=== PATIENT | male | born 1970 | race Caucasian/White ===

== ENCOUNTER 2016-08-30 19:48 | Emergency (ER) | payer BC, OTHER ==
[~2016-08-30] VITALS: Ht 177.8 cm; Wt 81.6 kg
[2016-08-30] MEDS ORDERED: ASPIRIN 81 MG CHEW TABLET PO ONE (20:00)
[2016-08-30] MEDS ORDERED: MULT1TAB10 PO (20:02)
[2016-08-30] MEDS ORDERED: AZEL0.055 (20:02)
[2016-08-30 20:28] LABS: BASO % 0.6 % (0.0-1.0); EOS # 0.2 K/mm3 (0.0-0.50); EOS % 2.6 % (0.0-3.0); LARGE UNSTAINED CELL # 0.1 K/mm3 (0.0-0.4); LARGE UNSTAINED CELL % 1.9 % (0.0-4.0); LYMPH # 2.3 K/mm3 (1.5-4.5); LYMPH % 38.6 % (24.0-44.0); MEAN CORPUSCULAR HEMOGLOBIN 29.7 pg (27.0-33.0); MEAN CORPUSCULAR HGB CONC 34.1 g/dl (32.0-36.5); MEAN CORPUSCULAR VOLUME 87.4 fl (80.0-96.0); MONO # 0.4 K/mm3 (0.0-0.8); MONO % 6.3 % (0.0-5.0); NEUTROPHILS % 50.1 % (36.0-66.0); PLATELET COUNT, AUTOMATED 219 k/mm3 (150-450)
[2016-08-30 20:55] LABS: ANION GAP 7 MEQ/L (8-16); BLOOD UREA NITROGEN 19 MG/DL (7-18); CALCIUM LEVEL 8.7 MG/DL (8.5-10.1); CARBON DIOXIDE LEVEL 30 MEQ/L (21-32); CHLORIDE LEVEL 106 MEQ/L (98-107); CREATININE FOR GFR 1.17 MG/DL (0.70-1.30); GLOMERULAR FILTRATION RATE > 60.0 (>60); GLUCOSE, FASTING 95 MG/DL (70-105); POTASSIUM SERUM 4.2 MEQ/L (3.5-5.1); SODIUM LEVEL 143 MEQ/L (136-145)
[2016-08-30] MEDS ORDERED: ISOVUE-370 76% 100ML VIAL (Q9967) As Ordered ONE (21:31)
--- NOTE | 2016-08-30 22:30 | REPUSA ---
History: Chest pain. Comparison: No prior CTA of the chest available Technique: A CT-pulmonary angiogram was performed. A dose of intravenous contrast was administered. A xial images were displayed, as were sagittal and coronal reconstructions. A 3-D model was also render ed. Findings: No CT evidence of pulmonary embolism is identified. There is no evidence of thoracic aortic aneurysm or dissection. No air space consolidation is identified in the lungs. There is no evidence of pulmonary edema. No pa thologically enlarged hilar or mediastinal lymph nodes are identified. No significant pleural or jay cardial fluid collection is seen. There is no evidence of pneumothorax. Mild degenerative changes are noted in the spine. The included portion of the upper abdomen demonstra te bilateral nonobstructing renal calculi. Impression: No evidence of pulmonary embolism is identified. Bilateral nonobstructing renal calculi.
[2016-08-30] MEDS ORDERED: GI COCKTAIL 50ML BTL(HYOSCYAMINE/MAALOX/LIDOCAINE VISCOUS)(1:3:1) PO ONE (22:45)
--- NOTE | 2016-08-31 00:25 | REP ---
Clinical: Chest pain . Comparison: 06/16/2011 . Findings: The mediastinum and cardiac silhouette are stable and within normal limits for portable technique. The lung villarreal are clear without acute consolidation, effusion, or pneumothorax. Skeletal structures are intact. Impression: Normal portable chest x-ray Signed by Griffin Bhagat MD 08/31/2016 12:17 A
[2016-08-31] MEDS ORDERED: ASPI81TA85 PO (00:56)
[2016-08-31 01:01] VITALS: BP 145/86
--- NOTE | 2016-08-31 08:23 | ECGEPIP ---
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
--- NOTE | 2016-08-31 08:24 | ECGEPIP ---
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
--- NOTE | 2016-08-31 08:27 | ECGEPIP ---
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
== END 2016-08-31 01:08 | disposition home or self-care (01) ==
LOC: M ED 20:54
DX: R07.9 Chest pain, unspecified (principal); I45.4 Nonspecific intraventricular block; N20.0 Calculus of kidney; G43.909 Migraine, unspecified, not intractable, without status migrainosus; Z80.3 Family history of malignant neoplasm of breast; Z82.49 Family history of ischemic heart disease and other diseases of the circulatory system; Z79.82 Long term (current) use of aspirin; Z79.899 Other long term (current) drug therapy
CPT/HCPCS: 71010; 71275; 80048; 82550; 82553; 83880; 85025; 93005; 93041; 94760; 99285; Q9967

== ENCOUNTER 2021-01-18 13:52 | Emergency (ER) | payer BC, OTHER ==
[~2021-01-18] VITALS: Ht 177.8 cm; Wt 78.3 kg
[~2021-01-18 13:52] MED LIST: ASPI81TA86 PO; AZEL0.055; MULT1TAB10 PO
[2021-01-18] MEDS ORDERED: PANTOPRAZOLE 40MG VIAL (C9113 PER 1) IV ONE (14:35)
[2021-01-18] MEDS ORDERED: ONDANSETRON 4MG/2ML VIAL IV ONE (14:35)
[2021-01-18] MEDS ORDERED: NS 1,000 ML IV ONE (14:35)
[2021-01-18 16:52] LABS: BASO % 0.2 % (0.0-1.0); EOS % 0.2 % (0.0-3.0); HEMATOCRIT 46.5 % (42.0-52.0); LYMPH # 0.9 10^3/uL (1.5-5.0); LYMPH % 20.1 % (24.0-44.0); MEAN CORPUSCULAR HEMOGLOBIN 29.9 pg (27.0-33.0); MEAN CORPUSCULAR HGB CONC 34.4 g/dl (32.0-36.5); MEAN CORPUSCULAR VOLUME 86.8 fl (80.0-96.0); MONO # 0.4 10^3/uL (0.0-0.8); NEUTROPHILS # 3.2 10^3/uL (1.5-8.5); NEUTROPHILS % 71.3 % (36.0-66.0); PLATELET COUNT, AUTOMATED 213 10^3/uL (150-450); RED BLOOD COUNT 5.36 10^6/uL (4.30-6.10); WHITE BLOOD COUNT 4.5 10^3/uL (4.0-10.0)
[2021-01-18 17:03] LABS: ALBUMIN 4.1 GM/DL (3.2-5.2); ALT/SGPT 32 U/L (12-78); BILIRUBIN,DIRECT 0.2 MG/DL (0.0-0.2); BILIRUBIN,TOTAL 0.7 MG/DL (0.2-1.0); BLOOD UREA NITROGEN 9 MG/DL (7-18); CALCIUM LEVEL 9.1 MG/DL (8.5-10.1); CARBON DIOXIDE LEVEL 28 MEQ/L (21-32); CHLORIDE LEVEL 106 MEQ/L (98-107); CREATININE FOR GFR 0.77 MG/DL (0.70-1.30); GLOMERULAR FILTRATION RATE > 60.0 (>56); GLUCOSE, FASTING 92 MG/DL (70-100); LIPASE 158 U/L (73-393); POTASSIUM SERUM 3.9 MEQ/L (3.5-5.1); SODIUM LEVEL 141 MEQ/L (136-145); TOTAL PROTEIN 7.3 GM/DL (6.4-8.2)
[2021-01-18] MEDS ORDERED: ZOFR4TAB16 PO (17:20)
[2021-01-18 18:30] VITALS: BP 128/72
== END 2021-01-18 18:22 | disposition home or self-care (01) ==
LOC: M ED 13:52
DX: R31.9 Hematuria, unspecified (principal); B34.9 Viral infection, unspecified; R11.0 Nausea
CPT/HCPCS: 80048; 80076; 81001; 83690; 85025; 96361; 96374; 96375; 99284; C9113; J2405

== ENCOUNTER → 2021-06-19 | Outpatient (CLI) | payer OTHER ==
[~2021-06-19] MED LIST changes: +ZOFR4TAB16 PO
--- NOTE | 2021-06-19 09:29 | REP ---
INDICATION: SPONDYLOSIS W/O MYELOPATHY OR RADICULOPATHY, CERVI. COMPARISON: None. TECHNIQUE: AP, lateral, swimmer's views of the cervical spine FINDINGS: Evidence for prior anterior fixation at C5-C7. Moderate degenerative changes include endplate sclerosis with marginal spurring and minimal disc space narrowing most pronounced at C7-T1 and C4-5. 1 mm of chronic anterolisthesis at C3-4 is suggested. No evidence for acute fracture/compression injury or significant subluxation. IMPRESSION: Degenerative changes as noted above. <Electronically signed by Griffin Bhagat > 06/19/21 [id number]
== END ==
LOC: M RAD 08:58
PROVIDERS: ATTEND Neurological Surgery
DX: M47.812 Spondylosis without myelopathy or radiculopathy, cervical region (principal)

== ENCOUNTER 2024-03-31 17:09 | Day surgery (SDC) | payer BC, OTHER ==
[~2024-03-31] VITALS: Ht 175.3 cm; Wt 77.3 kg
[~2024-03-31 17:09] MED LIST changes: -AZEL0.055; +AZEL1SPR4
[2024-03-31] MEDS: NS 1,000 ML IV ONE (17:25)
[2024-03-31] MEDS ORDERED: TRAZ1TAB11 (17:29)
[2024-03-31] MEDS ORDERED: SUMA6PEN3 (17:29)
[2024-03-31] MEDS ORDERED: NORT25CA2 (17:29)
[2024-03-31] MEDS: MORPHINE 4 MG/ML 1ML VIAL IV PRN (17:38)
[2024-03-31] MEDS: ONDANSETRON 4MG 2ML VIAL IV ONE (17:38)
[2024-03-31] MEDS ORDERED: ISOVUE-370 76% 100ML VIAL As Ordered ONE (17:42)
[2024-03-31 17:50] LABS: VENOUS BASE EXCESS 0.9 (-2.0-2.0); VENOUS HCO3 23.1 MMOL/L (23.0-27.0); VENOUS O2 SATURATION 58.3 % (60.0-80.0); VENOUS PARTIAL PRESSURE CO2 30.1 mmHg (38.0-50.0); VENOUS PARTIAL PRESSURE O2 26.2 mmHg (30.0-50.0); VENOUS PH 7.502 UNITS (7.330-7.430); VENOUS STANDARD HCO3 24.3 MMOL/L
[2024-03-31 17:54] LABS: BASO # 0.1 10^3/uL (0.0-0.2); BASO % 0.4 % (0.0-1.0); EOS % 0.1 % (0.0-3.0); HEMATOCRIT 39.8 % (42.0-52.0); HEMOGLOBIN 13.9 g/dl (13.5-17.5); LYMPH # 1.3 10^3/uL (1.5-5.0); LYMPH % 9.6 % (24.0-44.0); MEAN CORPUSCULAR HEMOGLOBIN 30.6 pg (27.0-33.0); MEAN CORPUSCULAR HGB CONC 34.9 g/dl (32.0-36.5); MEAN CORPUSCULAR VOLUME 87.7 fl (80.0-96.0); MONO # 0.8 10^3/uL (0.0-0.8); MONO % 5.5 % (2.0-8.0); NEUTROPHILS # 11.4 10^3/uL (1.5-8.5); PLATELET COUNT, AUTOMATED 287 10^3/uL (150-450); RED BLOOD COUNT 4.54 10^6/uL (4.30-6.10); WHITE BLOOD COUNT 13.5 10^3/uL (4.0-10.0)
[2024-03-31 18:06] LABS: INR 1.03; PARTIAL THROMBOPLASTIN TIME 25.3 SECONDS (24.8-34.2); PROTHROMBIN TIME 13.2 SECONDS (12.5-14.5)
[2024-03-31 18:18] LABS: LIPASE 38 U/L (12-53)
[2024-03-31 18:20] LABS: AMYLASE 65 U/L (30-118); CPK CREATINE PHOSPHOKINASE 452 U/L (46-171)
[2024-03-31 18:24] LABS: ALKALINE PHOSPHATASE 121 U/L (46-116); ALT/SGPT 31 U/L (7.0-40); AST/SGOT 30 U/L (<34); BILIRUBIN,DIRECT 0.2 MG/DL (<0.4); BILIRUBIN,TOTAL 0.7 MG/DL (0.3-1.2); BLOOD UREA NITROGEN 9 MG/DL (9-23); CALCIUM LEVEL 9.6 MG/DL (8.5-10.1); CARBON DIOXIDE LEVEL 24 MMOL/L (20-31); CHLORIDE LEVEL 105 MMOL/L (98-107); CK-MB VALUE MASS 3.4 NG/ML (<3.6); CREATININE FOR GFR 1.12 MG/DL (0.70-1.30); GLOMERULAR FILTRATION RATE > 60.0 (>56); GLUCOSE, FASTING 138 MG/DL (60-100); MB/CK RELATIVE INDEX 0.75 (< OR =4); SODIUM LEVEL 137 MMOL/L (136-145); TOTAL PROTEIN 6.6 G/DL (5.7-8.2)
[2024-03-31] MEDS: ceFAZolin 2 GM/D5W 50 ML IV BAG As Ordered ONE (19:15)
[2024-03-31] MEDS: TRANEXAMIC ACID 100 MG/ML 10ML VIAL As Ordered ONE (19:20)
[2024-03-31 19:30] LABS: CK-MB VALUE MASS 2.6 NG/ML (<3.6); MB/CK RELATIVE INDEX 0.66 (< OR =4)
[2024-03-31] MEDS ORDERED: MIDAZOLAM INJ 2MG/2ML VIAL As Ordered ONE (19:32)
[2024-03-31] MEDS ORDERED: KETOROLAC 60MG 2ML VIAL As Ordered ONE (19:32)
[2024-03-31] MEDS ORDERED: ROCURONIUM BROMIDE 50MG/5ML VIAL As Ordered ONE (19:32)
[2024-03-31] MEDS ORDERED: propofoL 200 MG/20 ML VIAL As Ordered ONE (19:32)
[2024-03-31] MEDS ORDERED: ONDANSETRON 4MG 2ML VIAL As Ordered ONE (19:32)
[2024-03-31] MEDS ORDERED: SUGAMMADEX SODIUM 500 MG/5 ML VIAL (BRIDION) As Ordered ONE (19:32)
[2024-03-31] MEDS ORDERED: dexmedeTOMIDine (4MCG/ML)200MCG/50ML BTL (PRECEDEX) As Ordered ONE (19:32)
[2024-03-31] MEDS ORDERED: LIDOCAINE 2% 100MG/5ML SDV (FOR ANES.) As Ordered ONE (19:32)
[2024-03-31] MEDS ORDERED: ACETAMINOPHEN 1000MG 100ML IV BAG As Ordered ONE (19:32)
[2024-03-31] MEDS ORDERED: METOCLOPRAMIDE INJ 10MG/2ML VIAL As Ordered ONE (19:32)
[2024-03-31] MEDS ORDERED: fentaNYL 100 MCG/2 ML INJECTION As Ordered ONE (19:32)
[2024-03-31] MEDS ORDERED: ePHEDrine SULFATE 25 MG/5 ML(5MG/ML) SYRINGE As Ordered ONE (19:44)
[2024-03-31] MEDS ORDERED: PHENYLephrine 500MCG 5ML (100MCG/ML) SYRINGE As Ordered ONE (19:44)
[2024-03-31] MEDS: EPINEPHrine INJ 1 MG/ML 1ML AMP As Ordered ONE (19:47)
[2024-03-31] MEDS ORDERED: HYDROMORPHONE HCL 0.5 MG/ 0.5 ML SYRINGE IV PRN (20:20)
[2024-03-31] MEDS ORDERED: MEPERIDINE 25 MG/ML 1ML VIAL IV PRN (20:20)
[2024-03-31] MEDS ORDERED: ONDANSETRON 4MG 2ML VIAL IV PRN (20:20)
[2024-03-31] MEDS ORDERED: fentaNYL 100 MCG/2 ML INJECTION IV PRN (20:20)
[2024-03-31] MEDS ORDERED: oxyCODONE 5MG TAB PO PRN (20:20)
[2024-03-31 20:45] VITALS: TEMP 98.7
[2024-03-31 21:15] VITALS: BP 133/62; O2SAT 97
== END 2024-03-31 21:23 | disposition short-term general hospital (02) ==
LOC: M ED 17:09 → M SDC 18:55
PROVIDERS: ATTEND Orthopaedic Surgery
DX: T79.A22A Traumatic compartment syndrome of left lower extremity, initial encounter (principal); W11.XXXA Fall on and from ladder, initial encounter; Y93.9 Activity, unspecified; Y92.009 Unspecified place in unspecified non-institutional (private) residence as the place of occurrence of the external cause
CPT/HCPCS: 27498; 70450; 71045; 71260; 72125; 72128; 72131; 73552; 73590; 73700; 74177; 80047; 80048; 80076; 82150; 82550; 82553; 82803; 83690; 84484; 85025; 85610; 85730; 86850; 86900; 86901; 93005; 93041; 94760; 99285; J0131; J0171; J0690; J1100; J1885; J2250; J2371; J2405; J2765; J3010; Q9967

== ENCOUNTER 2024-04-26 16:29 | Emergency (ER) | payer BC ==
[~2024-04-26] VITALS: Ht 177.8 cm; Wt 81.0 kg
[~2024-04-26 16:29] MED LIST changes: +NORT25CA2; +SUMA6PEN3; +TRAZ1TAB11
[2024-04-26 17:09] LABS: BASO # 0.1 10^3/uL (0.0-0.2); BASO % 0.4 % (0.0-1.0); EOS # 0.1 10^3/uL (0.0-0.5); EOS % 0.9 % (0.0-3.0); HEMATOCRIT 34.4 % (42.0-52.0); LYMPH # 1.2 10^3/uL (1.5-5.0); LYMPH % 10.5 % (24.0-44.0); MEAN CORPUSCULAR HEMOGLOBIN 31.4 pg (27.0-33.0); MEAN CORPUSCULAR HGB CONC 34.9 g/dl (32.0-36.5); MEAN CORPUSCULAR VOLUME 90.1 fl (80.0-96.0); MONO # 0.9 10^3/uL (0.0-0.8); MONO % 7.8 % (2.0-8.0); NEUTROPHILS # 9.3 10^3/uL (1.5-8.5); NEUTROPHILS % 79.9 % (36.0-66.0); PLATELET COUNT, AUTOMATED 360 10^3/uL (150-450); RED BLOOD COUNT 3.82 10^6/uL (4.30-6.10); WHITE BLOOD COUNT 11.7 10^3/uL (4.0-10.0)
[2024-04-26] MEDS ORDERED: ISOVUE-370 76% 100ML VIAL As Ordered ONE (17:10)
[2024-04-26 17:21] LABS: INR 0.97; PROTHROMBIN TIME 13.2 SECONDS (12.5-14.5)
[2024-04-26] MEDS: MORPHINE 4 MG/ML 1ML VIAL IV PRN (17:26)
[2024-04-26] MEDS: ONDANSETRON 4MG 2ML VIAL IV ONE (17:27)
[2024-04-26 17:36] LABS: BLOOD UREA NITROGEN 14 MG/DL (9-23); CARBON DIOXIDE LEVEL 28 MMOL/L (20-31); CHLORIDE LEVEL 103 MMOL/L (98-107); CREATININE FOR GFR 1.17 MG/DL (0.70-1.30); GLOMERULAR FILTRATION RATE > 60.0 (>56); GLUCOSE, FASTING 92 MG/DL (60-100); POTASSIUM SERUM 4.2 MMOL/L (3.5-5.1); SODIUM LEVEL 139 MMOL/L (136-145)
[2024-04-26 18:15] VITALS: TEMP 99.6
[2024-04-26 19:00] VITALS: BP 144/79; O2SAT 98
== END 2024-04-26 19:37 | disposition home or self-care (01) ==
LOC: M ED 16:29
DX: G89.18 Other acute postprocedural pain (principal); L76.22 Postprocedural hemorrhage of skin and subcutaneous tissue following other procedure; I10 Essential (primary) hypertension; E78.5 Hyperlipidemia, unspecified; G43.909 Migraine, unspecified, not intractable, without status migrainosus; Z79.899 Other long term (current) drug therapy
CPT/HCPCS: 73706; 80047; 80048; 85025; 85610; 86850; 86900; 86901; 96374; 96375; 99284; J2405; Q9967

== ENCOUNTER → 2025-05-21 | Outpatient (REF) | payer OTHER ==
[~2025-05-21] MED LIST changes: -SUMA6PEN3; +SUMA6PEN5
== END ==
LOC: M LAB REF 12:32
PROVIDERS: ATTEND Internal Medicine
DX: Z13.6 Encounter for screening for cardiovascular disorders (principal); Z82.49 Family history of ischemic heart disease and other diseases of the circulatory system